=== PATIENT | female | born 1985 | race Caucasian/White ===

== ENCOUNTER 2023-01-08 22:10 | Emergency (ER) | payer OTHER ==
[~2023-01-08] VITALS: Ht 157.5 cm; Wt 81.2 kg
[2023-01-08 22:13] VITALS: BP 124/91; PULSE 67; RESP 16; TEMP 97.4; O2SAT 99
[2023-01-09] MEDS ORDERED: IBUP-1842 PO (01:44)
[2023-01-09] MEDS ORDERED: CYCL10TA33 PO (01:44)
[2023-01-09] MEDS ORDERED: EMLAC TP (01:44)
[2023-01-09] MEDS ORDERED: KETOROLAC 30 MG/ML VIAL IM ONE (01:45)
[2023-01-09] MEDS ORDERED: LIDOCAINE/PRILOCAINE 2.5% 5 GM TUBE TP ONE (01:45)
[2023-01-09] MEDS ORDERED: CYCLOBENZAPRINE 10 MG TAB PO ONE (01:45)
[2023-01-09 02:05] VITALS: BP 124/91; PULSE 67; RESP 16; TEMP 97.4; O2SAT 99
== END 2023-01-09 02:05 | disposition home or self-care (01) ==
LOC: MED 22:10
DX: M25.551 Pain in right hip (principal); M25.552 Pain in left hip; M79.604 Pain in right leg; M79.605 Pain in left leg; Z79.899 Other long term (current) drug therapy; Z79.1 Long term (current) use of non-steroidal anti-inflammatories (NSAID)
CPT/HCPCS: 72170; 81025; 96372; 99283; J1885

== ENCOUNTER 2023-04-25 23:54 | Emergency (ER) | payer OTHER ==
[~2023-04-25] VITALS: Ht 157.5 cm; Wt 89.8 kg
[~2023-04-25 23:54] MED LIST: CYCL10TA33 PO; EMLAC TP; IBUP-1842 PO
[2023-04-26 00:03] VITALS: BP 113/67; PULSE 85; RESP 16; TEMP 99.7; O2SAT 99
[2023-04-26] MEDS ORDERED: KETOROLAC 30 MG/ML VIAL IM ONE (01:00)
[2023-04-26 01:03] LABS: FLU A ANTIGEN negative (NEGATIVE); FLU B ANTIGEN NEGATIVE (NEGATIVE)
[2023-04-26] MEDS ORDERED: NIRM1TAB9 PO (01:52)
[2023-04-26] MEDS ORDERED: ROBAC PO (01:52)
[2023-04-26 02:12] VITALS: BP 113/67; PULSE 85; RESP 16; TEMP 99.7; O2SAT 99
== END 2023-04-26 02:12 | disposition home or self-care (01) ==
LOC: MED 23:54
DX: U07.1 COVID-19 (principal); E78.00 Pure hypercholesterolemia, unspecified; Z79.899 Other long term (current) drug therapy; Z79.1 Long term (current) use of non-steroidal anti-inflammatories (NSAID)
CPT/HCPCS: 87426; 87804; 96372; 99283; J1885